=== PATIENT | female | born 1945 | race Caucasian/White ===

== ENCOUNTER 2018-01-23 11:17 | Emergency (ER) | payer MEDICARE, BC ==
[2018-01-23] MEDS ORDERED: Sodium Chloride 0.9% 500 ML IV ONE (11:59)
[2018-01-23] MEDS ORDERED: Sodium Chloride 0.9% 10 ML Syringe FLUSH PRN (11:59)
[2018-01-23] MEDS ORDERED: Gadobenate Dimeglumine 529 MG/ML 15 ML SDV IVPUSH ONE (13:07)
[2018-01-23] MEDS ORDERED: Sodium Chloride 0.9% 10 ML Syringe FLUSH SCH (13:15)
--- NOTE | 2018-01-23 13:29 | EDM.PDOC ---
ED HPI GENERAL MEDICAL PROBLEM - General Chief Complaint: Neurological Problem Stated Complaint: DOUBLE VISION AND HEADACHE Time Seen by Provider: 01/23/18 11:35 Source of Information: Reports: Patient, RN Notes Reviewed - History of Present Illness INITIAL COMMENTS - FREE TEXT/NARRATIVE: 72-year-old lady comes in with nonspecific dizziness but primarily difficulty with diplopia that in her words started 3 days ago. That has continued up to the present time. She states that she "sees 2 of everything". She states the images are sitting one on top of the other. She has very slight headache with this, no nausea or vomiting. No peripheral weakness, numbness or tingling of upper or lower extremities. No speech difficulty. Headache Pain Score (Numeric/FACES): 3 - Related Data Allergies Allergy/AdvReac Type Severity Reaction Status Date / Time No Known Allergies Allergy Verified 01/23/18 11:34 Home Meds: Home Meds . [No Known Home Meds] 01/23/18 [History] Past Medical History - Past Surgical History GI Surgical History: Reports: Appendectomy Social & Family History - Tobacco Use Smoking Status *Q: Current Every Day Smoker Years of Tobacco use: 60 Packs/Tins Daily: 1.5 - Caffeine Use Caffeine Use: Reports: Coffee - Recreational Drug Use Recreational Drug Use: No ED ROS GENERAL - Review of Systems Review Of Systems: See Below Constitutional: Denies: Fever, Chills, Diaphoresis HEENT: Reports: Other (Patient has had diplopia for 3 days, states one image sitting on top of the other). Denies: Ear Pain, Eye Pain, Sinus Problem Respiratory: Denies: Shortness of Breath Cardiovascular: Denies: Chest Pain GI/Abdominal: Denies: Abdominal Pain, Nausea, Vomiting Musculoskeletal: Reports: Neck Pain (Chronic, nothing worse than usual). Denies : Shoulder Pain, Arm Pain Skin: Reports: No Symptoms Neurological: Denies: Numbness, Tingling, Trouble Speaking, Weakness ED EXAM, NEURO - Physical Exam Exam: See Below General Appearance: Alert, No Apparent Distress Eye Exam: Bilateral Eye: PERRL, Other (Extraocular motion for both horizontal and vertical appears conjugate) Throat/Mouth: Normal Inspection Head Exam: Atraumatic. No: Facial Swelling, Facial Tenderness Neck: Supple, Full Range of Motion Respiratory/Chest: No Respiratory Distress, Lungs Clear, Normal Breath Sounds Cardiovascular: Normal Peripheral Pulses, Regular Rate, Rhythm GI/Abdominal: Soft, Non-Tender Neurological: Alert, No Motor/Sensory Deficits, Oriented x 3 Extremities: Normal Inspection, Normal Range of Motion, Pedal Edema. No: Leg Pain Skin Exam: Warm, Dry, Normal Color Course - Vital Signs Last Recorded V/S: Last Vital Signs Temp 97.1 F 01/23/18 11:31 Pulse 85 01/23/18 11:31 Resp 16 01/23/18 11:31 BP 121/82 01/23/18 11:31 Pulse Ox 96 01/23/18 11:31 - Orders/Labs/Meds Orders: Active Orders 24 hr Category Date Time Status Peripheral IV Care [RC] . DIRECTED Care 01/23/18 11:59 Active Face Neck Orbit w wo Cont [MR] Stat Exams 01/23/18 13:50 Taken Peripheral IV Insertion Adult [OM.PC] Stat Oth 01/23/18 11:59 Ordered Labs: Laboratory Tests 01/23/18 01/23/18 Range/Units 11:30 11:30 WBC 9.32 (3.98-10.04) K/mm3 RBC 4.80 (3.98-5.22) M/mm3 Hgb 14.9 (11.2-15.7) gm/L Hct 43.7 (34.1-44.9) % MCV 91.0 (79.4-94.8) fl MCH 31.0 (25.6-32.2) pg MCHC 34.1 (32.2-35.5) g/dl RDW Std Deviation 45.6 (36.4-46.3) fL Plt Count 264 (182-369) K/mm3 MPV 9.6 (9.4-12.3) fl Neut % (Auto) 57.5 (34.0-71.1) % Lymph % (Auto) 32.5 (19.3-51.7) % [place] % (Auto) 7.7 (4.7-12.5) % Eos % (Auto) 1.7 (0.7-5.8) Baso % (Auto) 0.4 (0.1-1.2) % Neut # (Auto) 5.35 (1.56-6.13) K/mm3 Lymph # (Auto) 3.03 (1.18-3.74) K/mm3 [place] # (Auto) 0.72 H (0.24-0.36) K/mm3 Eos # (Auto) 0.16 (0.04-0.36) K/mm3 Baso # (Auto) 0.04 (0.01-0.08) K/mm3 Sodium 140 (136-145) mEq/L Potassium 4.2 (3.5-5.1) mEq/L Chloride 105 (98-107) mEq/L Carbon Dioxide 28 (21-32) mEq/L Anion Gap 11.2 (5-15) BUN 9 (7-18) mg/dL Creatinine 0.7 (0.55-1.02) mg/dL Est Cr Clr Drug Dosing 51.25 mL/min Estimated GFR (MDRD) > 60 (>60) mL/min BUN/Creatinine Ratio 12.9 L (14-18) Glucose 103 (83-115) mg/dL Calcium 9.1 (8.5-10.1) mg/dL Total Bilirubin 0.6 (0.2-1.0) mg/dL AST 26 (15-37) U/L ALT 22 (14-59) U/L Alkaline Phosphatase 72 (46-116) U/L Total Protein 7.7 (6.4-8.2) g/dl Albumin 3.7 (3.4-5.0) g/dl Globulin 4.0 gm/dL Albumin/Globulin Ratio 0.9 L (1-2) Meds: Medications Discontinued Medications Generic Name Dose Route Start Last Admin Trade Name Freq PRN Reason Stop Dose Admin Gadobenate Dimeglumine 9 ml 01/23/18 13:07 01/23/18 13:49 Multihance IVPUSH 01/23/18 13:08 9 ml ONETIME ONE Administration Sodium Chloride 500 mls @ 999 mls/hr 01/23/18 11:59 01/23/18 12:18 Normal Saline IV 01/23/18 12:29 999 mls/hr .BOLUS ONE Administration Sodium Chloride 10 ml 01/23/18 11:59 01/23/18 12:19 Saline Flush FLUSH 10 ml ASDIRECTED PRN Administration Keep Vein Open Sodium Chloride 10 ml 01/23/18 13:15 01/23/18 13:50 Saline Flush FLUSH 10 ml ASDIRECTED HARJIT Administration - Re-Assessments/Exams Free Text/Narrative Re-Assessment/Exam: 01/23/18 16:27 Labs have come back normal, jeremy of the head and face and orbit did show some periventricular and subcortical white matter change compatible with small vessel ischemic change. No other major abnormality present. See Radiology report for details. Patient was becoming extremely inpatient time I did get a radiology report to help determine possible etiology of diplopia and to guide further action. Patient hardly wanted to wait for results or visit about the results and was not happy when I told the MRI did not show major significant findings. I have suggested that she do start taking baby daily aspirin, see her eye doctor for a complete eye exam and also see one of our clinic providers in follow-up in about 2-3 days. I explained to her that this is a "complicated problem involving the nerve and/or muscles that control the motion of the eye. Fortunately there is no evidence of tumor or something like that impinging on the nerve or muscles. Discharge instructions as documented. Departure - Departure Time of Disposition: 15:46 Disposition: Home, Self-Care 01 Condition: Fair Clinical Impression: Diplopia - Discharge Information Instructions: Diplopia Referrals: PCP,None [Primary Care Provider] - Forms: ED Department Discharge Additional Instructions: The MRI study of your brain, eye and face today was all relatively normal. There is no sign of a tumor, blood clot, hemorhage or major stroke. This could be a mini stroke or some other problem of the muscle or nerves that control the movement of your eyes. I do recomend taking a baby aspirin, 81 mg daily. I also recomend follow up with Dr Thornton or one of our other medical providers at our [facility] in about 2 to 3 days. Call [phone] for next available appointment. I also recomend you see your eye Dr for a complete eye exam next available appointment. Return to ED as needed if symptoms worsening in any way. - My Orders Last 24 Hours: My Active Orders 01/23/18 11:59 Peripheral IV Care [RC] . DIRECTED Peripheral IV Insertion Adult [OM.PC] Stat 01/23/18 13:50 Face Neck Orbit w wo Cont [MR] Stat - Assessment/Plan Last 24 Hours: My Active Orders 01/23/18 11:59 Peripheral IV Care [RC] . DIRECTED Peripheral IV Insertion Adult [OM.PC] Stat 01/23/18 13:50 Face Neck Orbit w wo Cont [MR] Stat
--- NOTE | 2018-01-23 16:21 | MR ---
MRI brain with orbits (without and with intravenous contrast) Technique: T1 sagittal; T2, T1, T2 FLAIR and diffusion axial; T1 FLAIR coronal; thin T2 fat-suppressed axial and coronal images through the orbits; thin T1 fat-suppressed axial and coronal images through the orbits were obtained which were repeated after gadolinium administration. Post-gadolinium T1 axial and post-gadolinium T1 FLAIR coronal images were obtained through the brain. Comparison: No prior intracranial imaging. Findings: Normal signal void is seen within the major cerebral arteries within the skull base. Ventricles along with basal cisterns and sulci over the convexities are within normal limits for the patient's age. Scattered areas of increased signal are seen within the periventricular and subcortical white matter compatible with small vessel ischemic demyelination change. No other abnormal signal is seen within the brain parenchyma. No abnormal diffusion abnormalities are seen. Right and left globes are symmetric. Extraocular muscles are symmetric between right and left sides. Optic nerves are also symmetric. Cavernous sinuses are normal. No retrobulbar abnormality is seen. No abnormal enhancement is seen within the optic nerves. Other portions of the brain parenchyma also show no abnormal enhancement. Impression: 1. Increased signal scattered within the periventricular and subcortical white matter which is compatible with small vessel ischemic demyelination change. 2. No additional abnormality is appreciated on MRI study of the brain and orbits performed without and with intravenous contrast. Diagnostic code #2
--- NOTE | 2018-01-24 08:00 | MR ---
MRI brain with orbits (without and with intravenous contrast) Technique: T1 sagittal; T2, T1, T2 FLAIR and diffusion axial; T1 FLAIR coronal; thin T2 fat-suppressed axial and coronal images through the orbits; thin T1 fat- suppressed axial and coronal images through the orbits were obtained which were repeated after gadolinium administration. Post-gadolinium T1 axial and post- gadolinium T1 FLAIR coronal images were obtained through the brain. Comparison: No prior intracranial imaging. Findings: Normal signal void is seen within the major cerebral arteries within the skull base. Ventricles along with basal cisterns and sulci over the convexities are within normal limits for the patient's age. Scattered areas of increased signal are seen within the periventricular and subcortical white matter compatible with small vessel ischemic demyelination change. No other abnormal signal is seen within the brain parenchyma. No abnormal diffusion abnormalities are seen. Right and left globes are symmetric. Extraocular muscles are symmetric between right and left sides. Optic nerves are also symmetric. Cavernous sinuses are normal. No retrobulbar abnormality is seen. No abnormal enhancement is seen within the optic nerves. Other portions of the brain parenchyma also show no abnormal enhancement. Impression: 1. Increased signal scattered within the periventricular and subcortical white matter which is compatible with small vessel ischemic demyelination change. 2. No additional abnormality is appreciated on MRI study of the brain and orbits performed without and with intravenous contrast. Diagnostic code #2 MTDD
== END 2018-01-23 15:54 | disposition home or self-care (01) ==
LOC: JD.ED 11:17
DX: H53.2 Diplopia (principal); F17.210 Nicotine dependence, cigarettes, uncomplicated
CPT/HCPCS: 36415; 70543; 70553; 80053; 85025; 96360; 99284; A9577; J7040; J7050

== ENCOUNTER 2018-01-28 09:29 | Emergency (ER) | payer MEDICARE, BC ==
[2018-01-28] MEDS ORDERED: Ondansetron 4 MG Tab.DIS PO ONE (10:32)
--- NOTE | 2018-01-28 11:17 | EDM.PDOC ---
ED HPI GENERAL MEDICAL PROBLEM - General Chief Complaint: Gastrointestinal Problem Stated Complaint: VOMITING Time Seen by Provider: 01/28/18 09:58 Source of Information: Reports: Patient, Old Records (ED 01/23/2018) History Limitations: Reports: No Limitations - History of Present Illness INITIAL COMMENTS - FREE TEXT/NARRATIVE: The patient states that she has had nausea, vomiting, lightheadedness, and diplopia, for the past 4-5 days. No constipation or diarrhea. No urinary symptoms. No recent fever. No prior similar symptoms. The patient has not taken any [id number] or home remedies for her symptoms. Medical records indicate that the patient was seen in this ED on 01/23/2018 with a complaint at that time of dizziness and diplopia that started on 01/20/2018. Her diplopia was one image on top of the other. She complained of a slight headache, but no nausea or emesis, peripheral weakness, numbness, tingling, or difficulty with speech. Workup included a CBC, CMP, and MRI of the head, all of which were unremarkable. It was suggested that she start taking a baby aspirin per day, and follow-up with an eye doctor. The patient states that she did follow-up with an eye doctor this past , 01/26/2018, but but that he did not find any abnormalities. The patient states that she has not otherwise followed up. The patient does not have a PCP. - Related Data Allergies Allergy/AdvReac Type Severity Reaction Status Date / Time No Known Allergies Allergy Verified 01/23/18 11:34 Home Meds: Home Meds Meclizine [Antivert] 1 tab PO Q6H PRN #20 tab 01/28/18 [Rx] Ondansetron [Zofran ODT] 1 tab PO Q8H PRN #10 tab.dis 01/28/18 [Rx] Past Medical History HEENT History: Reports: Impaired Vision Other HEENT History: wears glasses RADIOLOGY PHYSICIAN History: Reports: - Past Surgical History GI Surgical History: Reports: Appendectomy Social & Family History - Tobacco Use Smoking Status *Q: Current Every Day Smoker Years of Tobacco use: 60 Packs/Tins Daily: 1.5 - Caffeine Use Caffeine Use: Reports: Coffee - Alcohol Use Alcohol Use History: No - Recreational Drug Use Recreational Drug Use: No - Living Situation & Occupation Living situation: Reports: Single, Other (with a friend) Occupation: Retired ED ROS GENERAL - Review of Systems Review Of Systems: ROS reveals no pertinent complaints other than HPI. ED EXAM, DIZZINESS - Physical Exam Exam: See Below Exam Limited By: No Limitations General Appearance: Alert, No Apparent Distress, Thin Eye Exam: Bilateral Eye: EOMI, Normal Inspection, PERRL Nystagmus: worsens with head to L (vertical, fast component down), worsens with head to R (vertical, fast component down), reproducible, short duration Ears: Normal External Exam, Normal Canal, Hearing Grossly Normal, Normal TMs Nose: Normal Inspection, Normal Mucosa, No Blood Throat/Mouth: Normal Inspection, Normal Lips, Normal Teeth, Normal Gums, Normal Oropharynx, Normal Voice, No Airway Compromise Head Exam: Atraumatic, Normocephalic Vertigo: worsens with head to L, worsens with head to R, reproducible, short duration Neck: Normal Inspection, Supple, Non-Tender, Full Range of Motion. No: Lymphadenopathy (L), Lymphadenopathy (R) Respiratory/Chest: No Respiratory Distress, Lungs Clear, Normal Breath Sounds, No Accessory Muscle Use Cardiovascular: Normal Peripheral Pulses, Regular Rate, Rhythm, No Gallop, No JVD, No Murmur, No Rub GI/Abdominal: Normal Bowel Sounds, Soft, Non-Tender, No Organomegaly, No Distention, No Abnormal Bruit, No Mass (Female) Exam: Deferred Rectal (Female) Exam: Deferred Neurological: Alert, Normal Dorsiflexion, CN II-XII Intact, Normal Plantar Flexion, No Motor/Sensory Deficits, Oriented x 3 Back Exam: Normal Inspection, Full Range of Motion, NT Extremities: Normal Inspection, Normal Range of Motion, No Pedal Edema, Normal Capillary Refill Psychiatric: Normal Affect Skin Exam: Warm, Dry, Intact, Normal Color, No Rash Course - Vital Signs Last Recorded V/S: Last Vital Signs Temp 36.9 C 01/28/18 09:34 Pulse 88 01/28/18 09:34 Resp 18 01/28/18 09:34 BP 116/93 H 01/28/18 09:34 Pulse Ox 92 L 01/28/18 09:34 - Orders/Labs/Meds Meds: Medications Discontinued Medications Generic Name Dose Route Start Last Admin Trade Name Freq PRN Reason Stop Dose Admin Meclizine HCl 25 mg 01/28/18 10:31 01/28/18 11:06 Antivert PO 01/28/18 10:32 25 mg ONETIME STA Administration Ondansetron HCl 4 mg 01/28/18 10:32 01/28/18 11:06 Zofran Odt PO 01/28/18 10:33 4 mg ONETIME ONE Administration - Re-Assessments/Exams Free Text/Narrative Re-Assessment/Exam: 01/28/18 11:11 The patient appears to have pure downbeat vertical nystagmus along with induction of symptoms of vertigo, to the Lyla-Hallpike maneuver, both left and right. This is concerning, because to obtain pure downbeat nystagmus, a lesion would have to affect the two posterior canals, summating the resulting loss of upward slow drifts, canceling the opposing torsional drifts, and sparing all other canals. The odds are against such a selective yet bilateral lesion of the labyrinth. Nevertheless, however, the patient's vertigo and nystagmus are inducible with changes in position, and she had a negative MRI of the head on 01/23/2018. I will therefore refer the patient to Dr. Damian for further evaluation. The patient received a dose of meclizine and Zofran ODT here in the ED. She will discharged home with prescriptions for the same. Departure - Departure Time of Disposition: 11:17 Disposition: Home, Self-Care 01 Condition: Good Clinical Impression: BPPV (benign paroxysmal positional vertigo) - Discharge Information *PRESCRIPTION DRUG MONITORING PROGRAM REVIEWED*: Not Applicable *COPY OF PRESCRIPTION DRUG MONITORING REPORT IN PATIENT HARVEY: Not Applicable Prescriptions: Meclizine [Antivert] 1 tab PO Q6H PRN #20 tab PRN Reason: Dizziness Ondansetron [Zofran ODT] 1 tab PO Q8H PRN #10 tab.dis PRN Reason: Nausea/Vomiting Instructions: Vertigo, [id number] Referrals: PCP,None [Primary Care Provider] - Damien Damian MD [Ordering Only Provider] - Forms: ED Department Discharge Additional Instructions: You were seen in the emergency room for 4-5 days of dizziness, double vision, nausea, and vomiting. Based on your history and physical examination, you are MOST LIKELY suffering from benign paroxysmal positional vertigo (BPPV), a condition where one or more of the tiny semicircular canals in your inner ear is blocked. You have been started on the anti-dizziness medicine meclizine and the anti- nausea medicine Zofran. Prescriptions for meclizine and Zofran have been sent to the [facility], [address] [place] [address], located just south and across the [address] from [facility]. Take one tablet of meclizine every 6 hours, starting around 5:00 this evening, as prescribed. Be aware that meclizine may make you sleepy. Dissolve one tablet of the anti-nausea medicine Zofran on your tongue up to every 8 hours, as needed for nausea/vomiting. Follow-up with the Ear, Nose, and Throat Dr. Damien Damian in [place] at the next available appointment. If any other problems, please do not hesitate to return to the ER.
== END 2018-01-28 11:35 | disposition home or self-care (01) ==
LOC: JD.ED 09:29
DX: H81.13 Benign paroxysmal vertigo, bilateral (principal); F17.210 Nicotine dependence, cigarettes, uncomplicated
CPT/HCPCS: 99283; A9270

== ENCOUNTER 2018-01-29 11:48 | Emergency (ER) | payer MEDICARE, BC ==
--- NOTE | 2018-01-29 12:33 | EDM.PDOC ---
ED HPI GENERAL MEDICAL PROBLEM - General Chief Complaint: Gastrointestinal Problem Stated Complaint: VOMITING Time Seen by Provider: 01/29/18 11:59 Source of Information: Reports: Patient, Significant Other (Boyfriend) History Limitations: Reports: No Limitations - History of Present Illness INITIAL COMMENTS - FREE TEXT/NARRATIVE: The patient was seen in this ED on 01/23/2018 with a complaint at that time of dizziness and diplopia that had started on 01/20/2018. Her diplopia was of 1 image on top of the other. She complained of a slight headache, but no nausea or emesis, peripheral weakness, numbness, tingling, or difficulty with speech. Workup included a CBC, CMP, and MRI of the head, all of which were unremarkable. It was recommended that she start taking a baby aspirin per day, then follow-up with an eye doctor. The patient followed up in eye doctor on , 01/26/2018, but he did not find any abnormalities. The patient was then seen by me yesterday, 01/28/2018, with a complaint of nausea , vomiting, lightheadedness, and continue to diplopia. On examination, I found her to have vertical nystagmus, fast component down, with [place]-Hallpike maneuver to both the left and the right. While pure vertical nystagmus is rarely due to vestibular causes alone, the patient had just had a negative MRI of the head, and both the vertigo and nystagmus were inducible with positional changes. I therefore diagnosed the patient with BPPV, and prescribed her both meclizine and Zofran. The patient now returns with continued nausea, stating that the Zofran is not working. When asked closely about this, however, the patient's boyfriend states that when he went to the pharmacy to pick the medicines up, he put her discharge instructions down on the table, signed for the prescriptions, then left with the prescriptions, leaving the discharge instructions at the pharmacy. They therefore did not know who to call or what to do. Additionally, while the patient has been taking the meclizine every 6 hours as prescribed, she only took one Zofran last night, did not like the taste of it, and has not taken any since. The patient's boyfriend states that the patient did well from a nausea/emesis standpoint last night, but resumed vomiting this morning. When explained in this context, the patient agrees that we cannot call the Zofran a failure, when she has only taken 1 dose. The patient's boyfriend also mentions that the patient has lost about 10 pounds over the past 2 weeks, unintentionally, before the onset of her vertigo symptoms. Of note, the patient has an approximately [id number] history of smoking, and continues to smoke about 1.5 packs of cigarettes per day. The patient does not have any known chronic medical issues, but also has not been to a PCP in years. 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 ED EXAM, GENERAL - Physical Exam Exam: See Below Exam Limited By: No Limitations General Appearance: Alert, WD/WN, Mild Distress (Appears uncomfortable, nauseated) Eye Exam: Bilateral Eye: EOMI, Normal Inspection Ears: Normal External Exam, Hearing Grossly Normal Nose: Normal Inspection, No Blood Throat/Mouth: Normal Inspection, Normal Lips, Normal Voice, No Airway Compromise Head: Atraumatic, Normocephalic Neck: Normal Inspection, Full Range of Motion Respiratory/Chest: No Respiratory Distress, Lungs Clear, Normal Breath Sounds, No Accessory Muscle Use Cardiovascular: Normal Peripheral Pulses, Regular Rate, Rhythm, No Edema, No Gallop, No JVD, No Murmur, No Rub Peripheral Pulses: 4+: Radial (L), Radial (R) GI/Abdominal: Normal Bowel Sounds, Soft, Non-Tender, No Organomegaly, No Distention, No Abnormal Bruit, No Mass (Female) Exam: Deferred Rectal (Female) Exam: Deferred Back Exam: Normal Inspection, Full Range of Motion, NT Extremities: Normal Inspection, Normal Range of Motion, No Pedal Edema, Normal Capillary Refill Neurological: Alert, Oriented, Normal Cognition, No Motor/Sensory Deficits Psychiatric: Normal Affect Skin Exam: Warm, Dry, Intact, Normal Color, No Rash Course - Vital Signs Last Recorded V/S: Last Vital Signs Temp 36.6 C 01/29/18 11:59 Pulse 85 01/29/18 11:59 Resp 20 01/29/18 11:59 BP 128/79 01/29/18 11:59 Pulse Ox 89 L 01/29/18 11:59 - Re-Assessments/Exams Free Text/Narrative Re-Assessment/Exam: 01/29/18 12:27 The patient took one of her own Zofran tablets here in the ED with a glass of water. She did not realize that it does not need to be dissolved on the tongue. While the patient understandably feels poorly, she is hemodynamically stable, and I do not have an indication to admit her to the hospital. I will discharge her home with new discharge instructions, referring her to Dr. Damian, as well as a referral to Dr. Thornton, who can evaluate her weight loss. Departure - Departure Time of Disposition: 12:28 Disposition: Home, Self-Care 01 Condition: Good Clinical Impression: BPPV (benign paroxysmal positional vertigo), Nausea and vomiting, Unintentional weight loss - Discharge Information *PRESCRIPTION DRUG MONITORING PROGRAM REVIEWED*: Not Applicable *COPY OF PRESCRIPTION DRUG MONITORING REPORT IN PATIENT HARVEY: Not Applicable Instructions: Nausea and Vomiting, Adult, [id number], Dizziness, [id number] Referrals: Damien Damian MD [Ordering Only Provider] - Velia Thornton MD [Physician] - Forms: ED Department Discharge Additional Instructions: You were seen in the emergency room for continued nausea and vomiting, associated with your previous diagnosis of benign paroxysmal positional vertigo (BPPV). As discussed, take one tablet of the anti-nausea medicine Zofran every 8 hours, as needed for nausea/vomiting. Continue to take one tablet of the anti-dizziness medicine meclizine (Antivert) every 8 hours, as needed for dizziness. Follow-up with the ENT Dr. Damien Damian in [facility] at the next available appointment. Follow-up with Dr. Velia Thornton in the clinic as a primary care physician, to evaluate your weight loss, at the next available appointment. If any other problems, please do not hesitate to return to the ER.
== END 2018-01-29 14:00 | disposition home or self-care (01) ==
LOC: JD.ED 11:48
DX: H81.13 Benign paroxysmal vertigo, bilateral (principal); F17.210 Nicotine dependence, cigarettes, uncomplicated; R11.2 Nausea with vomiting, unspecified; R63.4 Abnormal weight loss
CPT/HCPCS: 99284